=== PATIENT | female | born 1930 | race Caucasian/White ===

== ENCOUNTER 2017-06-12 21:05 | Emergency (ER) | payer MEDICARE ==
[2017-06-12 21:21] VITALS: BP 174/70; PULSE 54; RESP 18; TEMP 97.9
--- NOTE | 2017-06-12 21:37 | ED ---
General Adult HPI - General Chief complaint: Extremity Injury, Lower Stated complaint: Fall Time Seen by Provider: 06/12/17 21:23 Source: patient, family, RN notes reviewed Mode of arrival: wheelchair Limitations: no limitations - History of Present Illness Initial comments: 87-year-old female presents emergency chief complaint of right trent contusion. Patient tripped and fell and hit her right trent. She has been able to ambulate but she does complain swelling to the right trent and ankle. Patient states is attributed and fall. There is no head injury no lightheadedness no dizziness. Patient denies any other symptoms with this. Patient was concerned due to the pain so she thought that she should be evaluated.Patient denies any recent fever , chills, shortness of breath, chest pain, back pain, abdominal pain, nausea vomiting, numbness or tingling, dysuria or hematuria, constipation or diarrhea, headaches or visual changes, or any other current symptoms. - Related Data Home Medications Medication Instructions Recorded Confirmed Aspirin 81 mg PO DAILY 01/28/14 06/12/17 Atenolol 100 mg PO BID 01/28/14 06/12/17 Simvastatin [Zocor] 20 mg PO HS 01/28/14 06/12/17 Tolterodine [Detrol] 2 mg PO DAILY 09/01/14 06/12/17 Verapamil HCl [Verapamil ER] 240 mg PO DAILY 09/01/14 06/12/17 metFORMIN HCL [Glucophage] 500 mg PO DAILY 06/12/17 06/12/17 Previous Rx's Medication Instructions Recorded Ibuprofen [Motrin] 600 mg PO Q6HR PRN 10 Days 09/01/14 Allergies Allergy/AdvReac Type Severity Reaction Status Date / Time codeine AdvReac Nausea Verified 06/12/17 21:42 propoxyphene napsylate AdvReac Nausea Verified 06/12/17 21:42 [From Darvocet-N 100] Review of Systems ROS Statement: Those systems with pertinent positive or pertinent negative responses have been documented in the HPI. ROS Other: All systems not noted in ROS Statement are negative. Past Medical History Past Medical History: Diabetes Mellitus, Hyperlipidemia, Hypertension History of Any Multi-Drug Resistant Organisms: None Reported Past Surgical History: Joint Replacement Additional Past Surgical History / Comment(s): bowel surgery, shoulder surg, ankle surg Past Psychological History: No Psychological Hx Reported Smoking Status: Never smoker Past Alcohol Use History: None Reported Past Drug Use History: None Reported General Exam - General Exam Comments Initial Comments: General: The patient is awake and alert, in no distress, and does not appear acutely ill. Neck: The neck is supple, there is no tenderness. Cardiovascular: There is a regular rate and rhythm. No murmur, rub or gallop is appreciated. Respiratory: Lungs are clear to auscultation, respirations are non-labored, breath sounds are equal. No wheezes, stridor, rales, or rhonchi. Musculoskeletal: Sensation intact with 2+ pulses at the time. Frontal motion of right knee and right ankle. Patient does appear to have anterior trent hematoma with associated abrasion. Noted right ankle no bony tenderness. Full range of motion. 5 out of 5 muscle strength testing throughout. Neurological: CN II-XII intact, There are no obvious motor or sensory deficits. Coordination appears grossly intact. Speech is normal. Skin: Skin is warm and dry and no rashes or lesions are noted. Psychiatric: Normal mood and affect. Limitations: no limitations Course Vital Signs 06/12/17 21:16 Temperature 97.9 F Pulse Rate 54 L Respiratory 18 Rate Blood Pressure 174/70 O2 Sat by Pulse 97 Oximetry Procedures - Orthopedic Splinting/Casting Injury #1 Side: right Lower Extremity Injury Location: lower leg Lower Extremity Immobilizer: Phil wrap Medical Decision Making - Medical Decision Making 87-year-old female presents with what appears to be right trent contusion. This time the patient underwent x-rays are negative. We discussed rest ice elevation. We did hurt Phil bandage. We discussed as well as the patient and family's questions. They state Fredis management plan. They'll be discharged. Disposition Clinical Impression: Contusion of lower leg, right, Traumatic hematoma of right lower leg, Abrasion , right lower leg, initial encounter Disposition: HOME SELF-CARE Condition: Stable Instructions: Contusion in Adults (ED), Hematoma (ED) Additional Instructions: Please use medication as discussed. Please follow up with family doctor if symptoms have not improved over the next two days. Please return to the emergency room if your symptoms increase or worsen or for any other concerns. Rest the area. Ice the area 20 min on 20 min off 4x a day. Compress the area with either the PHIL bandage or wearing the splint. Elevate the area above the heart whenever possible. Referrals: Samantha Mark MD [Primary Care Provider] - 1-2 days Time of Disposition: 22:12
--- NOTE | 2017-06-12 21:42 | XR ---
EXAMINATION TYPE: XR ankle complete RT DATE OF EXAM: 06/12/2017 COMPARISON: NONE HISTORY: Ankle pain TECHNIQUE: 3 views FINDINGS: There is soft tissue swelling over the lateral malleolus. Ankle mortise is anatomic. There is a plantar calcaneal spur. I see no fracture nor dislocation. Air is spurring of the tarsometatarsa l joints. IMPRESSION: Soft tissue swelling. No fracture.
--- NOTE | 2017-06-12 21:43 | XR ---
EXAMINATION TYPE: XR tibia fibula RT DATE OF EXAM: 06/12/2017 COMPARISON: NONE HISTORY: Pain TECHNIQUE: 2 views FINDINGS: Knee joint and ankle joint appear intact. I see no fracture nor dislocation. There is soft tissue swelling around the ankle joint. IMPRESSION: Soft tissue swelling. No fracture.
== END 2017-06-12 22:26 | disposition home or self-care (01) ==
LOC: EC 21:05
DX: S80.11XA Contusion of right lower leg, initial encounter (principal); E11.9 Type 2 diabetes mellitus without complications; E78.5 Hyperlipidemia, unspecified; I10 Essential (primary) hypertension; Z98.890 Other specified postprocedural states; Z88.5 Allergy status to narcotic agent; Z79.82 Long term (current) use of aspirin; Z79.84 Long term (current) use of oral hypoglycemic drugs; Z79.899 Other long term (current) drug therapy; W01.198A Fall on same level from slipping, tripping and stumbling with subsequent striking against other object, initial encounter
CPT/HCPCS: 99283

== ENCOUNTER → 2017-08-13 | Outpatient (CLI) | payer MEDICARE ==
--- NOTE | 2017-08-13 15:17 | US ---
EXAMINATION TYPE: US abdomen comp/pelvis limited DATE OF EXAM: 08/13/2017 COMPARISON: NONE CLINICAL HISTORY: Lower back pain M54.5,R10.3 Lower Abd Pain. EXAM MEASUREMENTS: Liver Length: 14.4 cm Gallbladder Wall: 0.2 cm CBD: 0.4 cm Spleen: 6.3 cm Right Kidney: 10.0 x 4.1 x 4.2 cm Left Kidney: 9.2 x 4.7 x 5.0 cm Pancreas: Obscured by bowel gas Liver: Homogeneous echotexture with appropriate visualization of the portal triads and hemidiaphragm. Gallbladder: wnl CBD: wnl Spleen: wnl Right Kidney: No hydronephrosis or masses seen Left Kidney: No hydronephrosis or masses seen Upper IVC: wnl Abd Aorta: Atherosclerotic changes Bladder: wnl as visualized, not fully distended. Patient could not hold bladder any longer to fill mo re. Bilateral Jets Seen Yes IMPRESSION: No sonographic evidence of cholelithiasis or acute cholecystitis. Pancreas is obscured by bowel gas, otherwise unremarkable exam.
== END | disposition home or self-care (01) ==
LOC: RADUSWWP 14:07
PROVIDERS: ATTEND Family Medicine
DX: R10.30 Lower abdominal pain, unspecified (principal); M54.5 Low back pain
CPT/HCPCS: 76700; 76857

== ENCOUNTER 2017-08-19 20:45 | Emergency (ER) | payer MEDICARE ==
[2017-08-19 20:51] VITALS: RESP 18; TEMP 97.9
[2017-08-19] MEDS ORDERED: SODIUM CHLORIDE 0.9% 1,000 ML IV STA (21:07)
[2017-08-19] MEDS ORDERED: ONDANSETRON 4 MG/2 ML VIAL IVP STA (21:07)
[2017-08-19] MEDS ORDERED: LABETALOL 5 MG/ML VIAL MDV IVP STA (21:13)
--- NOTE | 2017-08-19 21:13 | ED ---
Dizziness HPI - General Chief Complaint: Dizziness Stated Complaint: Dizzy Time Seen by Provider: 08/19/17 20:56 Source: family Mode of arrival: wheelchair Limitations: no limitations - History of Present Illness Initial Comments: This 87-year-old white female presents with family with multiple complaints. She barely has felt fairly weak and dizzy at times. She's been unsteady with ambulation but is still able to ambulate with a walker. She apparently fell last week and obtained a bruise to her left tibial region. She was complaining of some abdominal pain and back pain and had an ultrasound last week with unknown results. This abdominal pain and back pain has subsequently resolved. She also has had some nausea. She has had a significant decrease in appetite and has not had much to eat over the last several days. They deny any known fever or chills. She's almost seemed slightly confused per family. She denies any chest pain or shortness of breath. There is no current abdominal pain or back pain. 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 She has had occasional diplopia. She further relates that she's had some nasal congestion and cough over the past couple weeks as well. No other complaints or modifying factors. - Related Data Home Medications Medication Instructions Recorded Confirmed Aspirin 81 mg PO DAILY 01/28/14 08/19/17 Simvastatin [Zocor] 20 mg PO HS 01/28/14 08/19/17 Tolterodine [Detrol] 2 mg PO DAILY 09/01/14 08/19/17 metFORMIN HCL [Glucophage] 500 mg PO DAILY 06/12/17 08/19/17 Atenolol [Tenormin] 100 mg PO BID 08/19/17 08/19/17 Lisinopril [Zestril] 20 mg PO DAILY 08/19/17 08/19/17 Verapamil HCl 120 mg PO DAILY 08/19/17 08/19/17 Allergies Allergy/AdvReac Type Severity Reaction Status Date / Time Penicillins Allergy Rash/Hives Verified 08/19/17 21:44 codeine AdvReac Nausea Verified 08/19/17 21:44 propoxyphene napsylate AdvReac Nausea Verified 08/19/17 21:44 [From Holleyt-N 100] Review of Systems ROS Statement: Those systems with pertinent positive or pertinent negative responses have been documented in the HPI. ROS Other: All systems not noted in ROS Statement are negative. Past Medical History Past Medical History: Diabetes Mellitus, Hyperlipidemia, Hypertension History of Any Multi-Drug Resistant Organisms: None Reported Past Surgical History: Joint Replacement Additional Past Surgical History / Comment(s): bowel surgery, shoulder surg, ankle surg Past Psychological History: No Psychological Hx Reported Smoking Status: Former smoker Past Alcohol Use History: None Reported Past Drug Use History: None Reported General Exam - General Exam Comments Initial Comments: GENERAL: The patient is well nourished and well hydrated. VITAL SIGNS: Heart rate, blood pressure, respiratory rate reviewed as recorded in nurse's notes. EYES: Pupils are round and reactive. Extraocular movements are intact. No conjunctival / lid redness or swelling. ENT: No external evidence of injury, swelling, or ecchymosis. Airway is patent. Throat is clear. NECK: Nontender. No swelling or evidence of injury. No subcutaneous emphysema. Trachea is midline. No thyroid mass. HEART: Regular rate and rhythm. Good peripheral pulses. LUNGS/CHEST: Breath sounds clear and equal bilaterally. No rales, rhonchi, or wheezes. No ecchymosis, subcutaneous emphysema, or tenderness. ABDOMEN: Abdomen soft without tenderness. No palpable masses or organomegaly. No peritoneal signs. No abdominal wall swelling or ecchymosis. EXTREMITIES: There is mild tenderness and bruising over the left mid anterior tibia. Normal muscle tone and function. No thoracolumbar tenderness. NEUROLOGIC: Sensation is grossly intact. Cranial nerve exam reveals face is symmetrical, tongue is midline, speech is clear. SKIN: No abrasions or ecchymosis is noted. No induration or masses noted. PSYCHIATRIC: Alert and oriented. Appropriate behavior and judgment. Limitations: no limitations Course Vital Signs 08/19/17 08/19/17 08/19/17 20:47 21:23 21:41 Temperature 97.9 F Pulse Rate 60 53 L Pulse Rate [ 54 L Right Sitting Pulse Oximetery ] Pulse Rate [ 60 Right Standing Pulse Oximetery ] Pulse Rate [ 56 L Right Supine Pulse Oximetery ] Respiratory 18 Rate Blood Pressure 201/92 203/81 Blood Pressure 168/73 [Right Arm Sitting] Blood Pressure 185/75 [Right Arm Standing] Blood Pressure 164/72 [Right Arm Supine] O2 Sat by Pulse 97 95 Oximetry 08/19/17 08/19/17 22:17 23:12 Temperature Pulse Rate 52 L 53 L Pulse Rate [ Right Sitting Pulse Oximetery ] Pulse Rate [ Right Standing Pulse Oximetery ] Pulse Rate [ Right Supine Pulse Oximetery ] Respiratory 18 18 Rate Blood Pressure 172/74 144/65 Blood Pressure [Right Arm Sitting] Blood Pressure [Right Arm Standing] Blood Pressure [Right Arm Supine] O2 Sat by Pulse 99 99 Oximetry Medical Decision Making - Medical Decision Making The patient was seen and examined. All diagnostics were reviewed. The EKG shows a sinus bradycardia at a rate of 55. There is evidence of a left bundle branch block. There is no ST elevation identified. There is some T-wave inversions in lead 1 and aVL. The MT interval is 162, QRS duration is 148, and the QTC intervals 476. The laboratories reviewed and there is a very slight elevation in white blood cell count at 12,000. The remainder of labs and urine is essentially within normal limits. She had a x-ray of her left tibia/fibula and this is negative for acute fracture. The chest x-ray did not show any acute processes. The computed tomography scan of the brain does show some sinusitis but no other acute processes. She is feeling well on recheck. Her results are discussed with her in detail. The exact cause of her symptomatology is not definitively determined. She is offered admission to the hospital for further workup and neurology consult but refuses. She states that she would like to go home. She was offered antibiotics for her sinusitis but refuses stating that she recently was on antibiotics for urinary tract infection and that they make her nauseated. She apparently has an appointment with her primary care physician tomorrow morning. Return parameters are discussed and she leaves in no identifiable distress. - Lab Data Result diagrams: 08/19/17 21:05 08/19/17 21:05 Lab Results 08/19/17 08/19/17 08/19/17 Range/Units 21:05 21:05 21:05 WBC 12.0 H (3.8-10.6) k/uL RBC 4.49 (3.80-5.40) m/uL Hgb 12.3 (11.4-16.0) gm/dL Hct 38.3 (34.0-46.0) % MCV 85.4 (80.0-100.0) fL MCH 27.4 (25.0-35.0) pg MCHC 32.1 (31.0-37.0) g/dL RDW 12.7 (11.5-15.5) % Plt Count 284 (150-450) k/uL Neutrophils % 55 % Lymphocytes % 34 % Monocytes % 5 % Eosinophils % 2 % Basophils % 0 % Neutrophils # 6.6 (1.3-7.7) k/uL Lymphocytes # 4.1 (1.0-4.8) k/uL Monocytes # 0.6 (0-1.0) k/uL Eosinophils # 0.3 (0-0.7) k/uL Basophils # 0.1 (0-0.2) k/uL PT (9.0-12.0) sec INR (<1.2) APTT (22.0-30.0) sec Sodium 138 (137-145) mmol/L Potassium 4.4 (3.5-5.1) mmol/L Chloride 103 (98-107) mmol/L Carbon Dioxide 26 (22-30) mmol/L Anion Gap 9 mmol/L BUN 17 (7-17) mg/dL Creatinine 0.86 (0.52-1.04) mg/dL Est GFR (MDRD) Af Amer >60 (>60 ml/min/1.73 sqM) Est GFR (MDRD) Non-Af >60 (>60 ml/min/1.73 sqM) Glucose 112 H (74-99) mg/dL Calcium 9.4 (8.4-10.2) mg/dL Phosphorus 3.9 (2.5-4.5) mg/dL Magnesium 1.9 (1.6-2.3) mg/dL Total Bilirubin 0.3 (0.2-1.3) mg/dL AST 23 (14-36) U/L ALT 26 (9-52) U/L Alkaline Phosphatase 68 (38-126) U/L Total Creatine Kinase 46 (30-135) U/L CK-MB (CK-2) 1.1 (0.0-2.4) ng/mL CK-MB (CK-2) Rel Index 2.4 Troponin I <0.012 (0.000-0.034) ng/mL Total Protein 7.2 (6.3-8.2) g/dL Albumin 4.2 (3.5-5.0) g/dL TSH 0.755 (0.465-4.680) mIU/L Urine Color Urine Appearance (Clear) Urine pH (5.0-8.0) Ur Specific [place] (1.001-1.035) Urine Protein (Negative) Urine Glucose (UA) (Negative) Urine Ketones (Negative) Urine Blood (Negative) Urine Nitrite (Negative) Urine Bilirubin (Negative) Urine Urobilinogen (<2.0) mg/dL Ur Leukocyte Esterase (Negative) Urine RBC (0-5) /hpf Urine WBC (0-5) /hpf Ur Squamous Epith Cells (0-4) /hpf Urine Mucus (None) /hpf 08/19/17 08/19/17 Range/Units 21:05 21:44 WBC (3.8-10.6) k/uL RBC (3.80-5.40) m/uL Hgb (11.4-16.0) gm/dL Hct (34.0-46.0) % MCV (80.0-100.0) fL MCH (25.0-35.0) pg MCHC (31.0-37.0) g/dL RDW (11.5-15.5) % Plt Count (150-450) k/uL Neutrophils % % Lymphocytes % % Monocytes % % Eosinophils % % Basophils % % Neutrophils # (1.3-7.7) k/uL Lymphocytes # (1.0-4.8) k/uL Monocytes # (0-1.0) k/uL Eosinophils # (0-0.7) k/uL Basophils # (0-0.2) k/uL PT 9.9 (9.0-12.0) sec INR 1.0 (<1.2) APTT 23.5 (22.0-30.0) sec Sodium (137-145) mmol/L Potassium (3.5-5.1) mmol/L Chloride (98-107) mmol/L Carbon Dioxide (22-30) mmol/L Anion Gap mmol/L BUN (7-17) mg/dL Creatinine (0.52-1.04) mg/dL Est GFR (MDRD) Af Amer (>60 ml/min/1.73 sqM) Est GFR (MDRD) Non-Af (>60 ml/min/1.73 sqM) Glucose (74-99) mg/dL Calcium (8.4-10.2) mg/dL Phosphorus (2.5-4.5) mg/dL Magnesium (1.6-2.3) mg/dL Total Bilirubin (0.2-1.3) mg/dL AST (14-36) U/L ALT (9-52) U/L Alkaline Phosphatase (38-126) U/L Total Creatine Kinase (30-135) U/L CK-MB (CK-2) (0.0-2.4) ng/mL CK-MB (CK-2) Rel Index Troponin I (0.000-0.034) ng/mL Total Protein (6.3-8.2) g/dL Albumin (3.5-5.0) g/dL TSH (0.465-4.680) mIU/L Urine Color Light Yellow Urine Appearance Clear (Clear) Urine pH 6.0 (5.0-8.0) Ur Specific [place] 1.010 (1.001-1.035) Urine Protein Negative (Negative) Urine Glucose (UA) Negative (Negative) Urine Ketones Negative (Negative) Urine Blood Negative (Negative) Urine Nitrite Negative (Negative) Urine Bilirubin Negative (Negative) Urine Urobilinogen <2.0 (<2.0) mg/dL Ur Leukocyte Esterase Small H (Negative) Urine RBC 1 (0-5) /hpf Urine WBC 4 (0-5) /hpf Ur Squamous Epith Cells 1 (0-4) /hpf Urine Mucus Rare H (None) /hpf Disposition Clinical Impression: Dizziness, Hypertension, Weakness, Contusion of left leg, Gait instability, Nausea Disposition: HOME SELF-CARE Condition: Good Instructions: Dizziness (ED), Contusion in Adults (ED), Fall Prevention for Older Adults (ED), Hypertension (ED), Weakness (ED) Referrals: Samantha Mark MD [Primary Care Provider] - 1-2 days Time of Disposition: 23:21
[2017-08-19 21:19] LABS: Basophils # (A) 0.1 k/uL (0-0.2); Basophils % (A) 0 %; CH 28.5; CHCM 33.5; Eosinophils # (A) 0.3 k/uL (0-0.7); Eosinophils % (A) 2 %; HCT 38.3 % (34.0-46.0); HDW 2.09; HGB 12.3 gm/dL (11.4-16.0); Luc # (Auto) 0.45; Luc % (Auto) 4; Lymphocytes # (A) 4.1 k/uL (1.0-4.8); Lymphocytes % (A) 34 %; MCH 27.4 pg (25.0-35.0); MCHC 32.1 g/dL (31.0-37.0); MCV 85.4 fL (80.0-100.0); Mean Platelet Volume 7.6; Monocytes # (A) 0.6 k/uL (0-1.0); Monocytes % (A) 5 %; Neutrophils # (A) 6.6 k/uL (1.3-7.7); Neutrophils % (A) 55 %; RBC 4.49 m/uL (3.80-5.40); RDW 12.7 % (11.5-15.5); WBC (Perox) 11.51
[2017-08-19 21:26] LABS: Partial Thromboplastin Time 23.5 sec (22.0-30.0); Prothrombin Time 9.9 sec (9.0-12.0)
[2017-08-19 21:28] LABS: ALT 26 U/L (9-52); AST 23 U/L (14-36); Alkaline Phosphatase 68 U/L (38-126); Anion Gap 9 mmol/L; Blood Urea Nitrogen 17 mg/dL (7-17); Calcium 9.4 mg/dL (8.4-10.2); Carbon Dioxide 26 mmol/L (22-30); Chloride 103 mmol/L (98-107); Glucose 112 mg/dL (74-99); Magnesium 1.9 mg/dL (1.6-2.3); Non-African American GFR(MDRD) >60 (>60 ml/min/1.73 sqM); Phosphorus 3.9 mg/dL (2.5-4.5); Potassium 4.4 mmol/L (3.5-5.1); Sodium 138 mmol/L (137-145); Total Bilirubin 0.3 mg/dL (0.2-1.3); Total Protein 7.2 g/dL (6.3-8.2)
[2017-08-19 21:31] LABS: Creatine Kinase 46 U/L (30-135)
[2017-08-19 21:44] LABS: Creatine Kinase MB 1.1 ng/mL (0.0-2.4); Troponin I <0.012 ng/mL (0.000-0.034)
--- NOTE | 2017-08-19 22:11 | CT ---
EXAMINATION TYPE: CT brain wo con DATE OF EXAM: 08/19/2017 COMPARISON: NONE HISTORY: Weakness, dizziness and falls CT DLP: 1070 mGycm Automated exposure control for dose reduction was used. FINDINGS: There is a 2 cm mucous retention cyst in the left maxillary sinus. There is cerebral cortical atrophy . There is no mass effect nor midline shift. There is no sign of intracranial hemorrhage. The calvari um is intact. There is mucosal thickening also in right maxillary sinus. IMPRESSION: SINUSITIS. CEREBRAL ATROPHY. NO ACUTE INTRACRANIAL ABNORMALITY.
[2017-08-19 22:12] LABS: Appearance,Urine Clear (Clear); Bilirubin,Urine Negative (Negative); Glucose,Urine (UA) Negative (Negative); Ketones,Urine Negative (Negative); Leukocyte Esterase,Urine Small (Negative); Mucus,Urine Rare /hpf; Nitrite,Urine Negative (Negative); Particle Count 681; Protein,Urine Negative (Negative); RBC,Urine 1 /hpf (0-5); Squamous Epithelial Cell,Urine 1 /hpf (0-4); UA Billing (MACRO vs. MICRO) MICRO; Urobilinogen,Urine <2.0 mg/dL (<2.0); WBC,Urine 4 /hpf (0-5)
--- NOTE | 2017-08-19 22:20 | XR ---
EXAMINATION TYPE: XR tibia fibula LT DATE OF EXAM: 08/19/2017 COMPARISON: NONE HISTORY: Pain TECHNIQUE: 4 views FINDINGS: There is a plate with screws fixing the distal fibula. There is a single screw fixing the m edial malleolus. I see no acute fracture nor dislocation there is a plantar calcaneal spur. IMPRESSION: No acute abnormality of the left tibia and fibula.
--- NOTE | 2017-08-19 22:21 | XR ---
EXAMINATION TYPE: XR chest 2V DATE OF EXAM: 08/19/2017 COMPARISON: 03/12/2016 HISTORY: Weakness TECHNIQUE: Frontal and lateral views of the chest are obtained. FINDINGS: There is no heart failure nor confluent pneumonic infiltrate. Thoracic aorta is atheromato us. There is no sign of pleural effusion. There is left shoulder prosthesis. IMPRESSION: No active cardiopulmonary disease. No change.
[2017-08-19 23:13] VITALS: BP 144/65; PULSE 53
== END 2017-08-19 23:32 | disposition home or self-care (01) ==
LOC: EC 20:45
DX: S80.12XA Contusion of left lower leg, initial encounter (principal); I10 Essential (primary) hypertension; R11.0 Nausea; R53.1 Weakness; R42 Dizziness and giddiness; R26.89 Other abnormalities of gait and mobility; R00.1 Bradycardia, unspecified; I44.7 Left bundle-branch block, unspecified; D72.829 Elevated white blood cell count, unspecified; J32.9 Chronic sinusitis, unspecified; R63.8 Other symptoms and signs concerning food and fluid intake; H53.2 Diplopia; R05 Cough; R09.81 Nasal congestion; R41.0 Disorientation, unspecified; E78.5 Hyperlipidemia, unspecified; E11.9 Type 2 diabetes mellitus without complications; Z87.891 Personal history of nicotine dependence; Z79.82 Long term (current) use of aspirin; Z79.84 Long term (current) use of oral hypoglycemic drugs; Z79.899 Other long term (current) drug therapy; Z88.0 Allergy status to penicillin; Z88.5 Allergy status to narcotic agent; Z53.8 Procedure and treatment not carried out for other reasons; W19.XXXA Unspecified fall, initial encounter
CPT/HCPCS: 36415; 93005; 80053; 82550; 82553; 83735; 84100; 84443; 84484; 85025; 85610; 85730; 81001; 87040; 87086; 71020; 73590; 70450; 99284; 96374; 96361 ×2; J2405

== ENCOUNTER 2017-08-20 09:18 | Inpatient (IN) | payer MEDICARE ==
[2017-08-20] MEDS ORDERED: SODIUM CHLORIDE 0.9% 1,000 ML IV STA (09:45)
[2017-08-20] MEDS ORDERED: RX INFO: IV CONTRAST WAS GIVEN 1 EACH MISC MISCELLANE PRN (09:46)
--- NOTE | 2017-08-20 09:50 | ED ---
General Adult HPI - General Chief complaint: Dizziness Stated complaint: Fall-shoulder pain, dizzy Time Seen by Provider: 08/20/17 09:26 Source: patient, RN notes reviewed, old records reviewed Mode of arrival: wheelchair Limitations: no limitations - History of Present Illness Initial comments: 87-year-old female with history of hypertension and diabetes presents for second ER evaluation of dizziness, lightheadedness, and multiple falls. Patient was seen in the emergency department last night, she was offered admission for further evaluation, patient declined at that time. Patient's daughter is at bedside, states that this morning patient has been more unsteady on her feet, and she fell 2 times this morning. Patient is complaining of left shoulder pain. She is also complaining of persistent lightheadedness and dizziness. States she had a mild headache over the past 2 days, no headache currently. Denies vision changes. Denies ear pain. Denies chest pain or shortness of breath. Patient has had persistent dry heaving, over the past several days. Denies significant abdominal pain. She does have a history of a bowel obstruction in the past. She states her last bowel movement was yesterday was normal. Denies dysuria. Denies fever or chills. - Related Data Home Medications Medication Instructions Recorded Confirmed Aspirin 81 mg PO DAILY 01/28/14 08/20/17 Simvastatin [Zocor] 20 mg PO HS 01/28/14 08/20/17 Tolterodine [Detrol] 2 mg PO DAILY 09/01/14 08/20/17 metFORMIN HCL [Glucophage] 500 mg PO DAILY 06/12/17 08/20/17 Atenolol [Tenormin] 100 mg PO BID 08/19/17 08/20/17 Lisinopril [Zestril] 20 mg PO DAILY 08/19/17 08/20/17 Verapamil HCl 120 mg PO DAILY 08/19/17 08/20/17 Allergies Allergy/AdvReac Type Severity Reaction Status Date / Time Penicillins Allergy Rash/Hives Verified 08/20/17 09:50 codeine AdvReac Nausea Verified 08/20/17 09:50 propoxyphene napsylate AdvReac Nausea Verified 08/20/17 09:50 [From Jaime-N 100] Review of Systems ROS Statement: Those systems with pertinent positive or pertinent negative responses have been documented in the HPI. ROS Other: All systems not noted in ROS Statement are negative. Past Medical History Past Medical History: Diabetes Mellitus, Hyperlipidemia, Hypertension History of Any Multi-Drug Resistant Organisms: None Reported Past Surgical History: Joint Replacement Additional Past Surgical History / Comment(s): bowel surgery, shoulder surg, ankle surg Past Psychological History: No Psychological Hx Reported Smoking Status: Former smoker Past Alcohol Use History: None Reported Past Drug Use History: None Reported General Exam Limitations: no limitations General appearance: alert, in no apparent distress Head exam: Present: atraumatic, normocephalic Eye exam: Present: normal appearance, PERRL, EOMI. Absent: scleral icterus, conjunctival injection ENT exam: Present: mucous membranes dry, TM's normal bilaterally Neck exam: Present: normal inspection, full ROM. Absent: tenderness, meningismus Respiratory exam: Present: normal lung sounds bilaterally. Absent: respiratory distress, wheezes Cardiovascular Exam: Present: regular rate, normal rhythm, systolic murmur GI/Abdominal exam: Present: soft. Absent: distended, tenderness, guarding, rebound Extremities exam: Present: normal inspection, normal capillary refill, other ( Ecchymosis on the left anterior trent, surgical scar on the right anterior trent) . Absent: pedal edema Neurological exam: Present: alert, oriented X3, CN II-XII intact, other ( Patient has fxvxnz-[id number] ataxia in the left upper extremity. Bilateral heel- to-trent is normal. Equal strength in all 4 extremities) Psychiatric exam: Present: normal affect, normal mood Skin exam: Present: warm, dry, intact. Absent: cyanosis, diaphoretic Course Vital Signs 08/20/17 08/20/17 08/20/17 09:20 09:57 10:31 Temperature 97.6 F Pulse Rate 68 60 621 H Respiratory 16 18 18 Rate Blood Pressure 203/86 173/70 130/61 O2 Sat by Pulse 95 99 97 Oximetry EKG Findings - EKG Comments: EKG Findings:: EKG shows normal sinus rhythm, left bundle branch block, ventricular rate 70, HI interval 166, QRS duration 146, QTC 479, no signs of ischemia Medical Decision Making - Medical Decision Making 87-year-old female presenting with multiple falls, gait instability, dizziness and lightheadedness over the past 2 weeks. Patient was seen in emergency department yesterday, was recommended that the patient be brought in for neurology evaluation. Patient refused at that time. On exam patient does have left finger to nose ataxia. No other focal neurological findings. CT of brain is negative for acute renal process. CT angiography obtained no signs of acute occlusion or basilar insufficiency. Laboratory studies are stable from yesterday. Patient will be admitted for further evaluation treatment. Neurology will be placed on consult. Diagnosis: Vertigo, ataxia - Lab Data Result diagrams: 08/20/17 09:50 08/20/17 09:50 Lab Results 08/20/17 08/20/17 08/20/17 Range/Units 09:50 09:50 09:50 WBC 10.9 H (3.8-10.6) k/uL RBC 4.55 (3.80-5.40) m/uL Hgb 12.8 (11.4-16.0) gm/dL Hct 39.1 (34.0-46.0) % MCV 85.9 (80.0-100.0) fL MCH 28.2 (25.0-35.0) pg MCHC 32.8 (31.0-37.0) g/dL RDW 12.8 (11.5-15.5) % Plt Count 275 (150-450) k/uL Neutrophils % 67 % Lymphocytes % 24 % Monocytes % 4 % Eosinophils % 0 % Basophils % 0 % Neutrophils # 7.4 (1.3-7.7) k/uL Lymphocytes # 2.6 (1.0-4.8) k/uL Monocytes # 0.5 (0-1.0) k/uL Eosinophils # 0.1 (0-0.7) k/uL Basophils # 0.0 (0-0.2) k/uL PT (9.0-12.0) sec INR (<1.2) Sodium 139 (137-145) mmol/L Potassium 4.8 (3.5-5.1) mmol/L Chloride 105 (98-107) mmol/L Carbon Dioxide 25 (22-30) mmol/L Anion Gap 9 mmol/L BUN 15 (7-17) mg/dL Creatinine 0.82 (0.52-1.04) mg/dL Est GFR (MDRD) Af Amer >60 (>60 ml/min/1.73 sqM) Est GFR (MDRD) Non-Af >60 (>60 ml/min/1.73 sqM) Glucose 148 H (74-99) mg/dL Plasma Lactic Acid [place] 1.0 (0.7-2.0) mmol/L Calcium 9.4 (8.4-10.2) mg/dL Total Bilirubin 0.7 (0.2-1.3) mg/dL AST 36 (14-36) U/L ALT 28 (9-52) U/L Alkaline Phosphatase 68 (38-126) U/L Troponin I (0.000-0.034) ng/mL Total Protein 7.1 (6.3-8.2) g/dL Albumin 4.1 (3.5-5.0) g/dL 08/20/17 08/20/17 Range/Units 09:50 09:50 WBC (3.8-10.6) k/uL RBC (3.80-5.40) m/uL Hgb (11.4-16.0) gm/dL Hct (34.0-46.0) % MCV (80.0-100.0) fL MCH (25.0-35.0) pg MCHC (31.0-37.0) g/dL RDW (11.5-15.5) % Plt Count (150-450) k/uL Neutrophils % % Lymphocytes % % Monocytes % % Eosinophils % % Basophils % % Neutrophils # (1.3-7.7) k/uL Lymphocytes # (1.0-4.8) k/uL Monocytes # (0-1.0) k/uL Eosinophils # (0-0.7) k/uL Basophils # (0-0.2) k/uL PT 10.5 (9.0-12.0) sec INR 1.0 (<1.2) Sodium (137-145) mmol/L Potassium (3.5-5.1) mmol/L Chloride (98-107) mmol/L Carbon Dioxide (22-30) mmol/L Anion Gap mmol/L BUN (7-17) mg/dL Creatinine (0.52-1.04) mg/dL Est GFR (MDRD) Af Amer (>60 ml/min/1.73 sqM) Est GFR (MDRD) Non-Af (>60 ml/min/1.73 sqM) Glucose (74-99) mg/dL Plasma Lactic Acid [place] (0.7-2.0) mmol/L Calcium (8.4-10.2) mg/dL Total Bilirubin (0.2-1.3) mg/dL AST (14-36) U/L ALT (9-52) U/L Alkaline Phosphatase (38-126) U/L Troponin I <0.012 (0.000-0.034) ng/mL Total Protein (6.3-8.2) g/dL Albumin (3.5-5.0) g/dL Disposition Clinical Impression: Ataxia Disposition: ADMITTED IP TO THIS HOSP Condition: Stable Referrals: Samantha Mark MD [Primary Care Provider] - 1-2 days Decision to Admit Reason: Admit from EC Decision Date: 08/20/17 Decision Time: 11:32
[2017-08-20] MEDS ORDERED: ONDANSETRON 4 MG/2 ML VIAL IVP STA (09:51)
[2017-08-20 10:21] LABS: Basophils % (A) 0 %; CH 28.5; CHCM 33.4; Eosinophils # (A) 0.1 k/uL (0-0.7); Eosinophils % (A) 0 %; HCT 39.1 % (34.0-46.0); HDW 2.12; HGB 12.8 gm/dL (11.4-16.0); Luc # (Auto) 0.36; Luc % (Auto) 3; Lymphocytes # (A) 2.6 k/uL (1.0-4.8); Lymphocytes % (A) 24 %; MCH 28.2 pg (25.0-35.0); MCHC 32.8 g/dL (31.0-37.0); MCV 85.9 fL (80.0-100.0); Mean Platelet Volume 7.6; Monocytes # (A) 0.5 k/uL (0-1.0); Monocytes % (A) 4 %; Neutrophils # (A) 7.4 k/uL (1.3-7.7); Neutrophils % (A) 67 %; RBC 4.55 m/uL (3.80-5.40); RDW 12.8 % (11.5-15.5); WBC 10.9 k/uL (3.8-10.6); WBC (Perox) 10.93
[2017-08-20 10:22] LABS: Prothrombin Time 10.5 sec (9.0-12.0)
[2017-08-20 10:31] LABS: ALT 28 U/L (9-52); AST 36 U/L (14-36); Alkaline Phosphatase 68 U/L (38-126); Anion Gap 9 mmol/L; Blood Urea Nitrogen 15 mg/dL (7-17); Calcium 9.4 mg/dL (8.4-10.2); Carbon Dioxide 25 mmol/L (22-30); Chloride 105 mmol/L (98-107); Glucose 148 mg/dL (74-99); Non-African American GFR(MDRD) >60 (>60 ml/min/1.73 sqM); Sodium 139 mmol/L (137-145); Total Bilirubin 0.7 mg/dL (0.2-1.3); Total Protein 7.1 g/dL (6.3-8.2)
--- NOTE | 2017-08-20 10:32 | CT ---
EXAMINATION TYPE: CT brain wo con DATE OF EXAM: 08/20/2017 COMPARISON: 08/19/2017 HISTORY: Dizziness after fall yesterday. Prior on 08.19.17. Scanned by: LS and CS. CT DLP: [address] of the brain was performed. The ventricles, basal cisterns and sulci overlying the cerebral convexities demonstrate moderate enla rgement. There is no evidence for intracranial hemorrhage or sulcal effacement. There is decreased attenuation about the periventricular white matter and deep white matter of both c erebral hemispheres, compatible with chronic small vessel ischemia. Differential diagnosis does inclu de demyelination. No mass effects are seen.No midline shift. Osseous calvarium is intact. Pansinusitis changes. If symptoms persist consider MRI. IMPRESSION: 1. Age related atrophic and chronic small vessel ischemic change without acute intracranial process s een at this time.
[2017-08-20 10:38] LABS: Potassium 4.8 mmol/L (3.5-5.1)
--- NOTE | 2017-08-20 11:03 | CT ---
EXAMINATION TYPE: CT angio head neck DATE OF EXAM: 08/20/2017 COMPARISON: NONE HISTORY: Dizziness after fall yesterday. 65ml of Omni 350 and 50ml of saline. Prior brain without on 08.19.17. Scanned by: LS and CS. CT DLP: 208.8 mGycm CONTRAST: Performed with IV Contrast, patient injected with 65ml mL of Omnipaque 350. Combination Contrast CTA cervical carotids and [place] of [place] CTA cervical carotids with 3-D recons truction Contrast CTA of the cervical carotids was performed 3-D reconstruction imaging obtained at a separate workstation. Right carotid system: Mild plaque is seen of the right common carotid artery. There is mild plaque a lso noted at the carotid bulb and proximal ICA. Estimated diameter reduction of approximately 40%. ECA is patent. Right vertebral artery appears unremarkable. Left carotid system: Mild plaque is seen of the left common carotid artery. There is mild to moderat e plaque also noted at the carotid bulb and proximal ICS. Estimated diameter reduction of 50-60%. E CA is patent. Left vertebral artery appears unremarkable. IMPRESSION: 1. Estimated diameter reduction left ICA 50-60%. 2. Estimated diameter reduction ICA of 40% CTA [place] of [place] with 3-D reconstruction Contrast CTA of the [place] of [place] was performed 3-D reconstruction imaging obtained at a separate workstation. Vertebrobasilar system as well as intracranial portions of the internal carotid arteries and their ma mayuri tributaries are patent. I do not see evidence for sizable aneurysm or vascular malformation. Pl ease note MRI provides greater sensitivity and specificity. Visualized brain appears grossly unremar kable. IMPRESSION: 1. No siginificant abnormality.
--- NOTE | 2017-08-20 11:18 | XR ---
EXAMINATION TYPE: XR shoulder complete RT DATE OF EXAM: 08/20/2017 COMPARISON: NONE HISTORY: Pain TECHNIQUE: Three views are submitted. FINDINGS: The osseous structures are intact. There is no acute fracture or dislocation. There is narrowing of the glenohumeral joint. Mild arthropathy of the AC joint. IMPRESSION: 1. No acute process. 2. Arthropathy.
--- NOTE | 2017-08-20 11:20 | XR ---
EXAMINATION TYPE: XR abdomen acute w cxr DATE OF EXAM: 08/20/2017 CLINICAL HISTORY: Falling tree today with nausea vomiting and pain chest x-ray from yesterday TECHNIQUE: Single frontal view of chest is obtained. Supine and upright views of the abdomen are acq uired. COMPARISON: None. FINDINGS: There is chronic parenchymal change without suspicious focal airspace opacity, pleural effu manju , or pneumothorax seen bilaterally. Cardiac silhouette size remains enlarged. Osseous structur es are demineralized. Surgical change left shoulder is redemonstrated. Gas is noted in nondistended small bowel loops. Gas and fecal material is seen in nondistended colon . Contrast from recent CTA study is seen in collecting system and ureters and bladder. There are few right-sided pelvic phleboliths. No pneumoperitoneum is identified. There is multilevel spurring in th e spine. IMPRESSION: 1. No acute pulmonary process. 2. Overall nonspecific but likely nonobstructive bowel gas pattern.
[2017-08-20] MEDS ORDERED: ASPIRIN 325 MG TAB PO STA (11:29)
[2017-08-20] MEDS ORDERED: HYDROcodone/APAP 5-325MG 1 EACH TAB PO STA (13:21)
[2017-08-20 16:50] LABS: Glucose,Whole Blood 95 mg/dL (75-99)
[2017-08-20] MEDS ORDERED: MECLIZINE 12.5 MG TAB PO PRN (17:20)
[2017-08-20] MEDS: traMADol 50 MG TAB PO PRN ×2 (17:42→23:54)
[2017-08-20] MEDS ORDERED: ALPRAZolam 0.25 MG TAB PO PRN (18:46)
--- NOTE | 2017-08-20 19:16 | XR ---
EXAMINATION TYPE: XR chest 1V portable DATE OF EXAM: 08/20/2017 COMPARISON: 08/19/2017 HISTORY: Heart failure and nausea and vomiting TECHNIQUE: Single frontal view of the chest is obtained. FINDINGS: Heart is enlarged. There is minimal pulmonary congestion. Lungs appear clear of consolidat ion. I see no definite pleural effusion. There are chest leads. IMPRESSION: Mild congestion without overt heart failure. No significant change compared to yesterday .
[2017-08-20 19:25] LABS: Appearance,Urine Clear (Clear); Bilirubin,Urine Negative (Negative); Glucose,Urine (UA) Negative (Negative); Ketones,Urine Trace (Negative); Leukocyte Esterase,Urine Negative (Negative); Nitrite,Urine Negative (Negative); Protein,Urine Trace (Negative); UA Billing (MACRO vs. MICRO) CHEM; Urobilinogen,Urine <2.0 mg/dL (<2.0)
[2017-08-20 19:57] LABS: Specific Gravity,Urine 1.049 (1.001-1.035)
--- NOTE | 2017-08-20 19:57 | HP ---
HISTORY AND PHYSICAL CHIEF COMPLAINT: Dizziness and fall. HISTORY OF PRESENT ILLNESS: This 87-year-old woman with a past medical history of multiple medical issues, diabetes type 2, hypertension, hyperlipidemia, history of DJD, history of diabetes type 2 , being followed by Dr. Samantha Mark in the outpatient setting apparently had a fall and right leg hematoma a few weeks ago. Dr. Carty did the surgery. Hematoma doing better but subsequently patient is complaining of increasing difficulty walking, shakiness , and falls. The patient also had a cold couple days ago. The patient felt dizzy and fell. The patient was taken to [facility] Emergency Room yesterday. The patient was sent home, but subsequently at home also patient was feeling dizzy. Patient unable to keep anything down. Because of multiple symptomatology, patient taken back to [facility] and was admitted for further evaluation and treatment. A CT scan of the brain and CT was done no acute abnormality. CTA showed a CT angiography showed 50-60% left ICA and 40% right ICA stenosis. There is no history of fever, rigors or chills. No headache, loss of consciousness or seizures. PAST MEDICAL HISTORY: History of diabetes, history of hypertension, history of bowel surgery. MEDICATIONS: Prior to admission medications include Glucophage 500 mg p.o. daily, 120 mg p.o. daily, Detrol 2 mg p.o. daily, Zocor 20 mg q.h.s., Zestril 20 mg, Tenormin 100 mg daily, aspirin 81 mg daily. ALLERGIES: PENICILLIN, CODEINE AND DARVOCET N100. FAMILY HISTORY: History of stomach cancer. SOCIAL HISTORY: Previous history of smoking. No history of current smoking or alcohol intake. REVIEW OF SYSTEMS: ENT: Mentioned earlier. Cardiovascular As mentioned earlier. No angina or palpitations. Respiratory: As mentioned earlier. GI no nausea or vomiting. no dysuria. Central nervous system: As mentioned earlier. Allergy/immunology: No asthma or hayfever. Musculoskeletal: As mentioned earlier. Hematology/Oncology: No history of anemia. Endocrine: Diabetes. Constitutional: As mentioned earlier. Dermatology: Negative. Psychiatric: As mentioned earlier. PHYSICAL EXAMINATION: The patient is alert and oriented times three. Pulse 60, blood pressure 157/69, respiration 18, temperature 97.2, pulse ox 98%. No orthostatic changes. HEENT: Conjunctivae normal. Oral mucosa moist. Neck is no jugular venous distention. No carotid bruit. No lymph node enlargement. Cardiovascular system: S1, S2 muffled. Ejection systolic murmur. Respiratory: Breath sounds diminished in the bases. Scattered rhonchi. No crackles. ABDOMEN: Soft, nontender. No mass palpable. Legs no edema no swelling. Nervous system: Higher functions as mentioned earlier. Cranial nerves minimal nystagmus present otherwise some mild diffuse weakness present and finger-nose incoordination present, left more than the right. Gait ataxia present. Reflexes diminished. Skin sensation acute abnormality. Lymphatics: No lymph nodes palpable in the neck, axillae or groin. Joints no active deforming arthropathy. SKIN: No ulcer, rash, bleeding. LAB STUDIES: At this time shows WBC 10.9. CBC within normal limits. Glucose 148. ASSESSMENT: 1. Dizziness and weakness and falls, possibly vertebrobasilar stroke, acute. 2. Diabetes type 2. 3. Hypertension. 4. Hyperlipidemia. 5. History of multiple falls and gait dysfunction. 6. History of recent right leg hematoma. 7. History of degenerative joint disease. 8. History of glaucoma. 9. History of bowel surgery. 10.History of right lower lid melanoma removal. 11.Remote history of nicotine dependence. RECOMMENDATIONS AND DISCUSSION: In this 87-year-old woman who presented with multiple complex medical issues, we will monitor the patient closely, continue the current medications. Symptomatic treatment. I recommend antiplatelet agents, Lipitor. Otherwise neurologic consultation. Neurovascular workup. Monitor blood sugars closely. Monitor blood pressure closely. I would also recommend MRI and MRA. Other than that, 2D echo and complete neurovascular work up in progress. Discussed with the patient who understands and agrees. Copy forwarded to Dr. Samantha Mark who is the primary care physician. MMODL / IJN: [id number] / DAVIS
[2017-08-20] MEDS: PANTOPRAZOLE 40 MG TABLET PO SCH (20:16)
[2017-08-20 20:45] LABS: Glucose,Whole Blood 124 mg/dL (75-99)
[2017-08-20] MEDS: ATENOLOL 50 MG TAB PO SCH (20:50)
[2017-08-20] MEDS: HEPARIN SODIUM,PORCINE 5,000 UNIT/ML 1 ML VIAL SQ SCH (20:50)
[2017-08-20] MEDS: INSULIN ASPART 100 UNIT/ML 1 ML 10 ML VIAL SQ SCH (20:57)
[2017-08-20] MEDS ORDERED: MELATONIN 3 MG TABLET PO SCH (21:00)
[2017-08-20] MEDS ORDERED: ATORVASTATIN 10 MG TAB PO SCH (21:00)
--- NOTE | 2017-08-20 22:49 | CONS ---
CONSULTATION CHIEF COMPLAINT: Dizziness. HISTORY OF PRESENT ILLNESS: The patient is a pleasant 87-year-old female who is being evaluated by the neurology service per the request of Dr. Pathak for dizziness. The patient was brought into [facility] Emergency Room by her family, as she has been having significant dizziness for the past 2 days. She describes the dizziness as a spinning sensation and disequilibrium. The symptoms are worsened when her eyes are open. A CT scan of the brain was done which showed generalized atrophy and small-vessel ischemic changes. The patient is already on aspirin 81 mg daily at home. A CT angiogram of the brain was done which was normal, and her CT angiogram of the neck showed 50% to 60% stenosis in the left internal carotid artery and approximately 40% stenosis in the right internal carotid artery. Her CBC, INR, cardiac enzymes and comprehensive metabolic profiles were reviewed and showed no significant abnormalities. At the time of my evaluation, the patient is lying in her bed and appears to be in no acute distress. She denies any changes in her neurological symptoms. She denies any headache or any lateralizing numbness or weakness. PAST MEDICAL HISTORY: 1. Diabetes. 2. Dyslipidemia. 3. Hypertension. 4. History of joint replacement surgery. 5. Bowel surgery. 6. Orthopedic surgeries. SOCIAL HISTORY: The patient is a former smoker. She denies any alcohol or drug use. FAMILY HISTORY: Noncontributory. HOME MEDICATIONS: Reviewed in the chart. ALLERGIES: 1. PENICILLIN. 2. CODEINE. 3. DARVOCET. REVIEW OF SYSTEMS: CONSTITUTIONAL: Positive for fatigue. EYES: Negative. ENT: As mentioned above and also positive for chronic diminished hearing. CARDIOVASCULAR: Negative. GENITOURINARY: Negative. RESPIRATORY: Negative. NEUROLOGICAL: As mentioned above. ENDOCRINE: Positive for diabetes. PSYCHIATRIC: Negative. MUSCULOSKELETAL: Positive for occasional joint pain. PHYSICAL EXAMINATION: Vital signs show a temperature of 97.4, pulse 63, respiration 18, blood pressure 157/69. GENERAL APPEARANCE: The patient is a well-developed elderly female who appears to be in no acute distress. HEENT: Normocephalic, atraumatic. No facial asymmetry is seen. No nystagmus is noticed on extraocular muscle testing. Hearing is diminished. NECK: Supple with no masses felt. CARDIOVASCULAR: Regular rate and rhythm. ABDOMEN: Nontender, nondistended. Extremities showed no edema or clubbing. NEUROLOGICAL EXAMINATION: The patient is alert, aware and oriented x3. Speech and language are normal. Strength is full in all 4 extremities. Sensory exam was normal to light touch in all 4 extremities. Wbdyii-[id number]-[id number] testing showed dysmetria on the left upper extremity compared to the right. No facial asymmetry is seen on cranial nerve testing. IMPRESSION: 1. Dizziness. 2. Left-sided dysmetria. 3. 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 4. Moderate carotid stenosis. 5. Small-vessel ischemic disease. 6. Hypertension. 7. Diabetes. 8. Dyslipidemia. RECOMMENDATION: The patient's neurological examination is concerning for an acute ischemic stroke involving the left cerebellum. She has been having significant dizziness and has dysmetria on the left upper extremity on my neurological examination. I will order an MRI of the brain without contrast. I will discontinue aspirin and start her on Plavix 75 mg daily. I will order a fasting lipid panel, EEG, and serum homocystine level. Physical Therapy has been consulted. Continue Lipitor for statin therapy. Continue heparin for DVT prophylaxis. I do recommend Protonix for GI prophylaxis. Continue IV hydration as tolerated. I will continue to follow with you. Further recommendations to follow. Thank you for allowing me to participate in the care of your patient. If you have any questions, please feel free to contact me. CODY / IJN: [id number] /
[2017-08-21] MEDS: ACETAMINOPHEN TAB 500 MG TAB PO PRN ×2 (03:38→14:02)
[2017-08-21 05:55] LABS: Glucose,Whole Blood 88 mg/dL (75-99)
[2017-08-21] MEDS: INSULIN ASPART 100 UNIT/ML 1 ML 10 ML VIAL SQ SCH ×2 (06:04→14:56)
[2017-08-21] MEDS: PANTOPRAZOLE 40 MG TABLET PO SCH (06:22)
[2017-08-21 06:24] LABS: Basophils # (A) 0.1 k/uL (0-0.2); Basophils % (A) 1 %; CH 27.8; CHCM 31.6; Eosinophils # (A) 0.1 k/uL (0-0.7); Eosinophils % (A) 1 %; HCT 34.5 % (34.0-46.0); HDW 1.97; Luc # (Auto) 0.21; Luc % (Auto) 2; Lymphocytes % (A) 28 %; MCH 28.2 pg (25.0-35.0); MCHC 31.9 g/dL (31.0-37.0); MCV 88.5 fL (80.0-100.0); Monocytes % (A) 7 %; Neutrophils # (A) 8.6 k/uL (1.3-7.7); Neutrophils % (A) 62 %; RDW 13.8 % (11.5-15.5); WBC 13.9 k/uL (3.8-10.6); WBC (Perox) 14.96
[2017-08-21 06:33] LABS: Anion Gap 4 mmol/L; Blood Urea Nitrogen 17 mg/dL (7-17); Carbon Dioxide 30 mmol/L (22-30); Chloride 106 mmol/L (98-107); Cholesterol 121 mg/dL (<200); Glucose 88 mg/dL (74-99); HDL Cholesterol 48 mg/dL (40-60); Non-African American GFR(MDRD) 57 (>60 ml/min/1.73 sqM); Potassium 4.6 mmol/L (3.5-5.1); Sodium 140 mmol/L (137-145)
[2017-08-21] MEDS: HEPARIN SODIUM,PORCINE 5,000 UNIT/ML 1 ML VIAL SQ SCH (08:21)
[2017-08-21] MEDS: ATENOLOL 50 MG TAB PO SCH (08:21)
--- NOTE | 2017-08-21 08:53 | P.CNOR ---
History of Present Illness - [facility] Consult date: 08/21/17 Consult reason: joint pain (Right shoulder pain) History of present illness: This is an 87-year-old female admitted to [facility] on 2016 with acute onset of dizziness and lightheadedness. She has had multiple recent falls. She is admitted for further workup. We're consulted for orthopedic evaluation of her right shoulder pain. She states that she fell on her knees but bumped her right shoulder on the way down. She states that she hit the side of the couch as she fell. Past Medical History Past Medical History: Diabetes Mellitus, Eye Disorder, Hyperlipidemia, Hypertension, Osteoarthritis (OA) Additional Past Medical History / Comment(s): NIDDM type II, R eye glaucoma, urinary leakage. History of Any Multi-Drug Resistant Organisms: None Reported Past Surgical History: Bowel Resection, Joint Replacement Additional Past Surgical History / Comment(s): Bowel surgery for benign mass, L ankle ORIF with pins, total L shoulder arthroplasty, EGD/colonoscopy, hemorrhoidectomy, recent R lower leg melanoma removed, bilateral cataract removal with lens implants. Past Anesthesia/Blood Transfusion Reactions: No Reported Reaction Smoking Status: Former smoker - Past Family History Father Family Medical History: Cancer Additional Family Medical History / Comment(s): Father of stomach cancer at the age of 68yrs. Mother Additional Family Medical History / Comment(s): Mother at age 23 yrs from child . Medications and Allergies Home Medications Medication Instructions Recorded Confirmed Type Aspirin 81 mg PO DAILY 01/28/14 08/20/17 History Simvastatin [Zocor] 20 mg PO HS 01/28/14 08/20/17 History Tolterodine [Detrol] 2 mg PO DAILY 09/01/14 08/20/17 History metFORMIN HCL [Glucophage] 500 mg PO DAILY 06/12/17 08/20/17 History Atenolol [Tenormin] 100 mg PO BID 08/19/17 08/20/17 History Lisinopril [Zestril] 20 mg PO DAILY 08/19/17 08/20/17 History Verapamil HCl 120 mg PO DAILY 08/19/17 08/20/17 History Allergies Allergy/AdvReac Type Severity Reaction Status Date / Time Penicillins Allergy Rash/Hives Verified 08/20/17 09:50 codeine AdvReac Nausea Verified 08/20/17 09:50 propoxyphene napsylate AdvReac Nausea Verified 08/20/17 09:50 [From [facility]-N 100] Physical Examination This is a pleasant 87-year-old female in no acute distress. She is alert and oriented 3. She does have some hearing impairment. Exam of the head neck reveal no obvious deformity. She has slight limitation in cervical range of motion, particularly rotation. No pain on palpation about cervical spine or paraspinal musculature. Exam of the upper extremities reveals no obvious deformity. She has full forward flexion and abduction of the right shoulder without pain. There is minimal pain on palpation about the shoulder. She has full elbow, wrist and finger motion without difficulty or pain. Neurovascular status to the upper extremities is intact. Exam the lower extremities unremarkable. No hip pain with logroll bilaterally. Full foot and ankle motion bilaterally without pain or difficulty. Results X-rays of the right shoulder reveal mild to moderate glenohumeral joint arthritis. There is no acute fracture identified. No other bony abnormality is noted. - Labs Labs: Abnormal Lab Results - Last 24 Hours (Table) 08/20/17 08/20/17 08/20/17 Range/Units 09:50 09:50 09:50 WBC 10.9 H (3.8-10.6) k/uL Hgb (11.4-16.0) gm/dL Neutrophils # (1.3-7.7) k/uL Glucose 148 H (74-99) mg/dL POC Glucose (mg/dL) (75-99) mg/dL Hemoglobin A1c 6.4 H (4.0-6.0) % Ur Specific [place] (1.001-1.035) Urine Protein (Negative) Urine Ketones (Negative) 08/20/17 08/20/17 08/21/17 Range/Units 19:15 20:44 05:48 WBC 13.9 H (3.8-10.6) k/uL Hgb 11.0 L (11.4-16.0) gm/dL Neutrophils # 8.6 H (1.3-7.7) k/uL Glucose (74-99) mg/dL POC Glucose (mg/dL) 124 H (75-99) mg/dL Hemoglobin A1c (4.0-6.0) % Ur Specific [place] 1.049 H (1.001-1.035) Urine Protein Trace H (Negative) Urine Ketones Trace H (Negative) H & H 08/20/17 08/21/17 Range/Units 09:50 05:48 Hgb 12.8 11.0 L (11.4-16.0) gm/dL Hct 39.1 34.5 (34.0-46.0) % Coagulation 08/20/17 Range/Units 09:50 INR 1.0 (<1.2) Result Diagrams: 08/21/17 05:48 08/21/17 05:48 Assessment and Plan (1) Degenerative arthritis of right shoulder region Current Visit: Yes Status: Acute Code(s): M19.011 - PRIMARY OSTEOARTHRITIS, RIGHT SHOULDER SNOMED Code(s): 814849799413108 (2) Dizziness Current Visit: No Status: Acute Code(s): R42 - DIZZINESS AND GIDDINESS SNOMED Code(s): 647358321 (3) Gait instability Current Visit: No Status: Acute Code(s): R26.81 - UNSTEADINESS ON FEET SNOMED Code(s): 89331473 Plan: The clinical and x-ray findings are discussed with the patient and her daughter. I recommended physical therapy for pain management of the right shoulder. She does have history of cervical radiculopathy as well. She denies any numbness or tingling at this time. I also recommend continued physical therapy after discharge for her neck, shoulder and gait disturbances. She may follow-up in our office in 3-4 weeks for reevaluation of the right shoulder pain the patient normally sees Dr. Mock.
[2017-08-21] MEDS ORDERED: VERAPAMIL 40 MG TAB PO SCH (09:00)
[2017-08-21] MEDS ORDERED: LISINOPRIL 20 MG TAB PO SCH (09:00)
[2017-08-21] MEDS ORDERED: ASPIRIN 325 MG TAB PO SCH (09:00)
[2017-08-21] MEDS ORDERED: CLOPIDOGREL 75 MG TAB PO SCH (09:00)
[2017-08-21] MEDS ORDERED: OXYBUTYNIN XL 5 MG TAB.ER.24 PO SCH (09:00)
[2017-08-21] MEDS ORDERED: metFORMIN 500 MG TAB PO SCH (09:00)
[2017-08-21 10:16] VITALS: RESP 18
[2017-08-21 11:05] VITALS: BMI 29.1
--- NOTE | 2017-08-21 11:21 | MR ---
EXAMINATION TYPE: MR angio head wo con DATE OF EXAM: 08/21/2017 COMPARISON: NONE HISTORY: ataxia TECHNIQUE: Utilizing 3-D [id number] intracranial MRA of the [place] of [place] was performed. FINDINGS: The vertebrobasilar and carotid systems are patent. There is mild fusiform dilation of the A1 segmen t of the left anterior cerebral artery measuring a diameter of approximately 3.5 mm. Right posterior cerebral artery originates from the anterior circulation. IMPRESSION: 1. 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
--- NOTE | 2017-08-21 11:30 | ECHOF ---
Referral Reason:Stroke MEASUREMENTS -------- HEIGHT: 154.9 cm WEIGHT: 70.3 kg BP: 157/69 IVSd: 1.1 cm (0.6 - 1.1) LVIDd: 4.1 cm (3.9 - 5.3) LVPWd: 1.0 cm (0.6 - 1.1) IVSs: 1.7 cm LVIDs: 2.1 cm LVPWs: 1.8 cm LAESV Index (A-L): 24.84 ml/m Ao Diam: 2.8 cm (2.0 - 3.7) AV Cusp: 1.4 cm (1.5 - 2.6) LA Diam: 3.5 cm (2.7 - 3.8) EPSS: 0.3 cm MV E Jake: 0.62 m/s MV DecT: 354 ms MV A Jake: 1.02 m/s MV E/A Ratio: 0.61 RAP: 5.00 mmHg RVSP: 42.87 mmHg MV EF SLOPE: 30.06 mm/s (70 - 150) MV EXCURSION: 1.44 cm (> 18.000) FINDINGS -------- Sinus rhythm. This was a technically adequate study. The left ventricular size is normal. There is mild concentric left ventricular hypertrophy. Overa ll left ventricular systolic function is normal with, an EF between 65 - 70 %. The right ventricle is normal in size and function. Normal LA size by volume 22+/-6 ml/m2. The right atrium is normal in size. Aortic valve is trileaflet and is mildly thickened. There is no evidence of aortic regurgitation. There is no evidence of aortic stenosis. The mitral valve leaflets are mildly thickened. There is trace mitral regurgitation. Mild tricuspid regurgitation present. There is mild pulmonary hypertension. The right ventricular systolic pressure, as measured by Doppler, is 42.87mmHg. The pulmonic valve was not well visualized. The aortic root size is normal. Normal inferior vena cava with normal inspiratory collapse consistent with estimated right atrial pre ssure of 5 mmHg. There is a small pericardial effusion located near the left ventricle. CONCLUSIONS -------- 1. Sinus rhythm. 2. This was a technically adequate study. 3. The left ventricular size is normal. 4. There is mild concentric left ventricular hypertrophy. 5. Overall left ventricular systolic function is normal with, an EF between 65 - 70 %. 6. Normal LA size by volume 22+/-6 ml/m2. 7. Aortic valve is trileaflet and is mildly thickened. 8. The mitral valve leaflets are mildly thickened. 9. There is trace mitral regurgitation. 10. Mild tricuspid regurgitation present. 11. There is mild pulmonary hypertension. 12. The right ventricular systolic pressure, as measured by Doppler, is 42.87mmHg. 13. The pulmonic valve was not well visualized. 14. The aortic root size is normal. 15. There is a small pericardial effusion located near the left ventricle. [employer]: Abdirashid Cid RDCS
--- NOTE | 2017-08-21 11:35 | MR ---
"EXAMINATION TYPE: MR brain wo con DATE OF EXAM: 08/21/2017 COMPARISON: CT brain 08/20/2017 HISTORY: ataxia T1-weighted sagittal, T2, FLAIR, and diffusion axial, and T2 coronal coronal views of the brain are s ubmitted. There is focal area of abnormal signal involving the left middle cerebellar peduncle. This does resul t in some mild mass effect upon the fourth ventricle. There is extension of the abnormal signal into the nikki and midbrain on the left.. There is moderate generalized degenerative change. Numerous areas of abnormal signal within the white matter most typical of remote microvascular ischemia. Changes of chronic sinusitis noted. Partially empty sella turcica noted. Craniocervical junction main tained. Craniocervical junction maintained. Sella turcica has a normal appearance. No cerebellopontine angle mass. Changes of chronic sinusitis and mastoiditis. IMPRESSION: 1. Abnormal signal involving the middle cerebellar peduncle on the left also noted on diffusion. Ther e is mass effect upon the fourth ventricle. On T2 and FLAIR imaging there is extension of abnormal si gnal into the nikki and midbrain on the left. Differential diagnosis would include a subacute area of infarction. Could not exclude neoplastic process and recommend post contrast assessment. Compression of fourth ventricle can result in a degree of hydrocephalus. 2. Degenerative and nonspecific white matter changes most typical remote microvascular ischemia. 3. Extensive changes of sinusitis A Red message has been communicated to Raj Pathak MD via the [employer] | Critical Result syst em on 08/21/2017 11:27 AM, Message ID [id number]."
[2017-08-21] MEDS ORDERED: cefTRIAXone IN SWFI 1,000 MG/10 ML SYRINGE IVP SCH ×2 (12:00→15:15)
[2017-08-21] MEDS ORDERED: DEXAMETHASONE SOD PHOSPHATE 4 MG/ML 1 ML VIAL IV PRN (12:02)
[2017-08-21] MEDS ORDERED: DEXAMETHASONE SOD PHOSPHATE 10 MG/ML 1 ML VIAL IV STA (12:02)
--- NOTE | 2017-08-21 13:52 | MR ---
EXAMINATION TYPE: MR brain w con DATE OF EXAM: 08/21/2017 COMPARISON: MRI brain earlier today. CT brain from yesterday. HISTORY: stroke vs mass, dizziness after fall injury on admission 2 days ago.. TECHNIQUE: Multiplanar, multisequence images of the brain and brainstem is performed without and with IV contras t, utilizing 6 mL intravenous Gadavist . FINDINGS: Corresponding to area of concern on recent MRI along the left lateral aspect of the fourth ventricle there is homogeneous enhancing well-circumscribed lobulated area measuring up to 1.6 cm qualified craft worker electrician niocaudal dimension sagittal image 76r measuring up to 9 mm in craniocaudal dimension axial image 10 measuring up to 7 mm transversely on coronal image 23. Area show surrounding T2 hyperintensity and lo joe mass effect with T2 hyperintense extension into the dorsal aspect of the midbrain. There is no di minished ADC signal. Findings favor enhancing mass or neoplasm. Lesion is favored intra-axial based o n degree of edema abutting the fourth ventricle, extra-axial location is felt much less likely given the prominent edema. Acute or subacute infarct is essentially excluded. Ventricular and sulcal promin ence is noted, cannot exclude a mild obstructive hydrocephalus on background of diffuse atrophy. IMPRESSION: As above
[2017-08-21 14:44] LABS: Glucose,Whole Blood 123 mg/dL (75-99)
[2017-08-21] MEDS ORDERED: cefTRIAXone IN SWFI 1,000 MG/10 ML SYRINGE IVP ONE (15:15)
--- NOTE | 2017-08-21 15:35 | P.DS ---
Providers Date of admission: 08/20/17 11:45 Attending physician: Raj Pathak Consults: 08/20/17 11:44 Consult Physician Routine Consulting Provider: Angelica Fuller Consult Reason/Comments: ataxia Do you want consulting provider notified?: Yes 08/20/17 18:28 Consult Physician Routine Consulting Provider: Brihgt Reddy Consult Reason/Comments: shoulder pain Do you want consulting provider notified?: Yes Consult Physician Urgent Consulting Provider: Angelica Fuller Consult Reason/Comments: ataxia Do you want consulting provider notified?: Yes 08/21/17 11:19 Consult Physician Routine Consulting Provider: Shira Wynn Consult Reason/Comments: bacteremia Do you want consulting provider notified?: Yes Primary care physician: Samantha Mark [facility] Course: This 87-year-old woman with a past medical history multiple medical problems was admitted with dizziness and weakness and falls over the past several weeks. Patient also had a previous ER visit also. CAT scan has been normal. Patient was found to have for possibly left brain stem stroke versus mass lesion on the lateral wall of the fourth third ventricle on the left side. Patient is also had some of compressive features. The patient continues to be nauseous and the gait ataxia. Patient also had cerebellar signs of the left side. 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 Because her lack of improvement we discussed the case with [facility] neurology team and the patient be transferred to [facility] for further eval are treatment. Total time taken is 35 minutes. On exam vitals are stable. Cardio S1 and S2 normal. Respirator system clear to auscultation. Abdomen soft nontender. Nervous system left sided cerebellar signs also present. Of note also the staff just informed me that a blood culture done as an outpatient a few days ago was positive for gram-negative bacillary. Patient will need further evaluation for that also. Urine appears clear at this time. Empiric antibiotics in the form of Rocephin has been initiated. Recommended full workup also. Final diagnosis 1. Dizziness and weakness and falls possibly acute vertebrobasilar stroke or mass lesion on the left lateral wall of the fourth ventricle. 2. Diabetes mellitus type 2. 3. History of recent blood culture from outpatient positive with gram-negative vascular. 3. Hypertension. 4. Hyperlipidemia. 5. History multiple falls and gait dysfunction. 6. History of right leg hematoma. 7. History of DJD. 8. History of glaucoma. 9. History of bowel surgery. 10. History of right lower leg melanoma removal. 11. Remote history and nicotine dependence. Patient Condition at Discharge: Stable Plan - Discharge Summary Discharge Rx Participant: No New Discharge Prescriptions: No Action Simvastatin [Zocor] 20 mg PO HS Aspirin 81 mg PO DAILY Tolterodine [Detrol] 2 mg PO DAILY metFORMIN HCL [Glucophage] 500 mg PO DAILY Lisinopril [Zestril] 20 mg PO DAILY Verapamil HCl 120 mg PO DAILY Atenolol [Tenormin] 100 mg PO BID Discharge Medication List Aspirin 81 mg PO DAILY 01/28/14 [History] Simvastatin [Zocor] 20 mg PO HS 01/28/14 [History] Tolterodine [Detrol] 2 mg PO DAILY 09/01/14 [History] metFORMIN HCL [Glucophage] 500 mg PO DAILY 06/12/17 [History] Atenolol [Tenormin] 100 mg PO BID 08/19/17 [History] Lisinopril [Zestril] 20 mg PO DAILY 08/19/17 [History] Verapamil HCl 120 mg PO DAILY 08/19/17 [History] Follow up Appointment(s)/Referral(s): Samantha Mark MD [Primary Care Provider] - 1-2 days Angelica Fuller MD [STAFF PHYSICIAN] - 1 Week
[2017-08-21] MEDS ORDERED: metroNIDAZOLE 500 MG TAB PO SCH (16:00)
[2017-08-21 16:23] VITALS: BP 144/57; PULSE 57; TEMP 97.9
--- NOTE | 2017-08-21 18:59 | EEG ---
ELECTROENCEPHALOGRAM REPORT DATE OF SERVICE: 08/21/2017. REASON FOR TESTING: Stroke. DESCRIPTION OF THE PROCEDURE: This EEG was performed using a 21 channel digital electroencephalograph, following international 10-20 system. DESCRIPTION OF THE RECORDING: From the beginning of the tracing, with patient's eyes closed, the background rhythm was mostly consisting of 8-9 Hz alpha frequency in the posterior occipital leads. No obvious asymmetry is seen. Photic stimulation was performed with a minimal driving response seen. No pathological waves were elicited. Hyperventilation was not performed. The patient does reach stage II of sleep during the tracing and occasional K complexes are seen. No epileptiform discharges were seen. Her EKG lead showed a regular rate and rhythm. INTERPRETATION: This asleep and awake EEG can be considered within normal limits. There was no asymmetry seen. No epileptiform discharges were noticed. The absence of epileptiform discharges does not rule out the diagnosis of epilepsy, therefore clinical correlation is recommended. MMDENISE / ELIOT: [id number] /
--- NOTE | 2017-08-21 20:29 | CONS ---
CONSULTATION DOS : 08/21/17 REASON FOR CONSULTATION: Gram-negative bacteremia. HISTORY OF PRESENT ILLNESS: The patient is an 87-year-old female who has been in the ER x2. Initially she was brought in August 19 with chief complaints of dizziness, weakness and falls. Apparently the patient did have a workup done and was told everything was normal and was discharged home. The patient did have blood cultures drawn on that admission which have now come back positive with Gram-negative bacilli; hence I was asked to see the patient for further recommendations. Daughter did mention that since the patient was sent home from the ER on August 19, she has been feeling very weak and tired and did have 2 falls and a feeling of dizziness. She has been brought back into the ER. The patient has been complaining of an episode of abdominal pain about a week ago. The pain was mostly in the lower abdominal area, about 7 to 8 out of 10, and no radiation. Some associated nausea but no vomiting. She did have associated constipation with it. On this admission the patient did have a CT of the brain which shows generalized atrophy and small-vessel ischemic changes. However, the patient also had an MRI of the brain done which shows abnormal signal involving the middle cerebellar peduncle on the left and mass effect upon the fourth ventricle with differential of possible subacute area of infarction and degree of hydrocephalus. Apparently the patient is being transferred to [facility] to be evaluated by Neurosurgery. REVIEW OF SYSTEMS: CONSTITUTIONAL: Positive for weakness and some chills but no fever has been recorded during this hospital stay. EYES: No complaint. ENT: No complaint. RESPIRATORY: No complaint. CARDIOVASCULAR: No complaint. GENITOURINARY: No complaint. GASTROINTESTINAL: As per HPI. MUSCULOSKELETAL: No complaint. INTEGUMENTARY: No complaint. PSYCHOLOGICAL: No complaint. ENDOCRINE: No complaint. NEUROLOGICAL: No complaint. PAST MEDICAL HISTORY: 1. Hypertension. 2. Hyperlipidemia. 3. Diabetes mellitus. SURGICAL HISTORY: 1. Right ankle surgery. 2. Shoulder surgery. 3. Bowel surgery. SOCIAL HISTORY: Remote history of smoking. No drinking or drug use. FAMILY HISTORY: No pertinent findings noticed. ALLERGIES: 1. PENICILLIN. However, she tolerated keflex without a problem. 2. CODEINE. 3. PROPOXYPHENE. CURRENT MEDICATIONS: Current medications include: 1. Tylenol. 2. Xanax. 3. Tenormin. 4. Lipitor. 5. Rocephin 1 gram daily. 6. Plavix. 7. Decadron. 8. Heparin. 9. NovoLog. 10.Zestril. 11.Antivert. 12.Melatonin. 13.Glucophage. 14.Ditropan XL. 15.Protonix. 16.Ultram. 17.Verapamil. PHYSICAL EXAMINATION: Blood pressure is 172/74 with a pulse of 73, temperature 97.4. She is 94% on 2 L nasal cannula. General description is an elderly female lying in bed in no distress. No tachypnea or accessory muscle of respiration use. HEENT examination shows slight pallor. No scleral icterus. Oral mucosa membrane is dry. NECK: Trachea is central. No thyromegaly. LUNGS: Unlabored breathing. Clear to auscultation. No wheeze or crackle. HEART: S1, S2. Regular rate and rhythm. ABDOMEN: Soft. No tenderness. No guarding or rigidity. No organomegaly. EXTREMITIES: No edema of the feet. SKIN EXAMINATION: No rash or mass palpable. Neurologically patient is awake, alert, oriented x3. No signs of meningeal irritation. LABS: Hemoglobin is 11, white count of 13.9. Admission white count was 10.9 with a BUN of 17, creatinine 0.94. UA has been negative. Influenza A and B were negative. Blood cultures done on August 19 are showing Gram-negative bacilli. DIAGNOSTIC IMPRESSION AND PLAN: 1. Patient with Gram-negative bacteremia. Source could be abdominal, as the patient did have constipation and did have an episode of abdominal pain; however, no significant tenderness was noticed on abdominal examination today. Her urine is clean and no clinical findings on lung examination or any respiratory symptoms suspicious for pneumonia. The patient did have some abnormality seen on the MRI. However, differential of a possible stroke rather than an abscess. 2. Patient has a PENICILLIN ALLERGY. That does limit the number of antibiotics that can be safely used. PLAN: 1. Repeat blood cultures x1 STAT to make sure there is no evidence of any persistent bacteremia. 2. Patient's antibiotic will be in the form of Rocephin 2 grams daily, and will add Flagyl. 3. As the patient is being transferred to [facility], hence will hold on adding any further workup, especially CT of the belly to look for an abdominal source. This was explained in detail to the patient's family, and all their questions were answered. MMODL / IJN: [id number] / DAVIS
[2017-08-22] MEDS ORDERED: cefTRIAXone IN SWFI 2,000 MG/20 ML SYRINGE IVP SCH (09:00)
== END 2017-08-21 16:53 | disposition short-term general hospital (02) | DRG 65 ==
LOC: EC 09:18 → 6SEL 11:45
PROVIDERS: ADMIT Hospitalist; ATTEND Hospitalist
DX: I63.9 Cerebral infarction, unspecified (principal); R78.81 Bacteremia; I67.1 Cerebral aneurysm, nonruptured; B96.89 Other specified bacterial agents as the cause of diseases classified elsewhere; I10 Essential (primary) hypertension; E11.9 Type 2 diabetes mellitus without complications; E78.5 Hyperlipidemia, unspecified; H40.9 Unspecified glaucoma; I65.23 Occlusion and stenosis of bilateral carotid arteries; K59.00 Constipation, unspecified; M19.011 Primary osteoarthritis, right shoulder; R26.0 Ataxic gait; G93.9 Disorder of brain, unspecified; Z79.82 Long term (current) use of aspirin; Z79.899 Other long term (current) drug therapy; Z79.84 Long term (current) use of oral hypoglycemic drugs; Z98.41 Cataract extraction status, right eye; Z98.42 Cataract extraction status, left eye; Z96.612 Presence of left artificial shoulder joint; Z91.81 History of falling; Z88.0 Allergy status to penicillin; Z88.5 Allergy status to narcotic agent; Z87.891 Personal history of nicotine dependence; Z85.820 Personal history of malignant melanoma of skin
CPT/HCPCS: 36415; 70450; 70496; 70498; 70544; 70551; 70552; 71010; 71020; 74022; 80048; 80053; 80061; 81001; 81003; 82550; 82553; 83036; 83090; 83605; 83735; 84100; 84443; 84484; 85025; 85610; 85730; 87040; 87086; 87502; 93005; 93306; 95819; 96361; 96374; 99284; 99285

== ENCOUNTER → 2018-09-28 | Outpatient (CLI) | payer MEDICARE ==
--- NOTE | 2018-09-29 19:17 | ECHOF ---
Referral Reason:R01.1 Cardiac Murmur MEASUREMENTS -------- HEIGHT: 152.4 cm WEIGHT: 70.8 kg BP: RVIDd: 2.7 cm (< 3.3) IVSd: 1.4 cm (0.6 - 1.1) LVIDd: 4.4 cm (3.9 - 5.3) LVPWd: 1.4 cm (0.6 - 1.1) IVSs: 1.7 cm LVIDs: 3.5 cm LVPWs: 1.6 cm LA Diam: 3.5 cm (2.7 - 3.8) LAESV Index (A-L): 26.95 ml/m Ao Diam: 2.7 cm (2.0 - 3.7) AV Cusp: 1.6 cm (1.5 - 2.6) LA Diam: 3.4 cm (2.7 - 3.8) MV EXCURSION: 14.577 mm (> 18.000) MV EF SLOPE: 58 mm/s (70 - 150) EPSS: 0.5 cm MV E Jake: 0.47 m/s MV DecT: 319 ms MV A Jake: 0.85 m/s MV E/A Ratio: 0.55 RAP: 5.00 mmHg RVSP: 30.35 mmHg FINDINGS -------- Sinus rhythm. This was a technically adequate study. The left ventricular size is normal. There is moderate concentric left ventricular hypertrophy. O verall left ventricular systolic function is normal with, an EF between 55 - 60 %. The right ventricle is normal in size. The left atrial size is normal. The right atrial size is normal. The aortic valve is trileaflet, and appears structurally normal. No aortic stenosis or regurgitation. Mild mitral annular calcification present. Mild mitral regurgitation is present. Mild tricuspid regurgitation present. There is no evidence of pulmonary hypertension. The right v entricular systolic pressure, as measured by Doppler, is 30.35mmHg. There is no pulmonic regurgitation present. The aortic root size is normal. There is no pericardial effusion. CONCLUSIONS -------- 1. The left ventricular size is normal. 2. There is moderate concentric left ventricular hypertrophy. 3. Overall left ventricular systolic function is normal with, an EF between 55 - 60 %. 4. The right ventricle is normal in size. 5. The left atrial size is normal. 6. The right atrial size is normal. 7. The aortic valve is trileaflet, and appears structurally normal. No aortic stenosis or regurgitati on. 8. Mild mitral annular calcification present. 9. Mild mitral regurgitation is present. 10. Mild tricuspid regurgitation present. 11. There is no evidence of pulmonary hypertension. 12. The right ventricular systolic pressure, as measured by Doppler, is 30.35mmHg. 13. There is no pulmonic regurgitation present. 14. The aortic root size is normal. 15. There is no pericardial effusion. [employer]NER: Tiera Mims RDCS
== END | disposition home or self-care (01) ==
LOC: RADECHMAIN 11:13
PROVIDERS: ATTEND Family Medicine
DX: I08.1 Rheumatic disorders of both mitral and tricuspid valves (principal)
CPT/HCPCS: 93306